=== PATIENT | female | born 1985 | race Hispanic/Latino ===

== ENCOUNTER 2023-12-10 11:16 | Outpatient (CLI) | payer SELFPAY ==
[2023-12-10 11:31] VITALS: BMI 30.2
[2023-12-10 11:46] VITALS: TEMP 36.3
[2023-12-10 13:10] VITALS: PULSE 99; O2SAT 98
[2023-12-10 15:20] LABS: Mucous, Urine 0 SEEN /hpf (<or=2+); Red Blood Cells-Urine 0 SEEN /hpf (0-5)
[2023-12-10 15:25] LABS: Absolute Lymphocyte Count 1.22 X10^3/uL (0.83-4.51); Absolute Neutrophil Count 4.2 X10^3/uL (2.0-7.7); Basophil# 0.01 X10^3/uL; Basophil% 0.2 % (0-1); Eosinophil# 0.06 X10^3/uL; Hematocrit 31.2 % (37-47); Hemoglobin 10.1 g/dL (12.0-15.0); Lymphocyte # 1.22 X10^3/ul (0.83-4.51); Lymphocyte % 20.5 % (19-41); Mean Corp Hgb Conc 32.4 g/dL (32-36); Mean Corpuscular Hgb 27.4 pg (27.0-32.0); Mean Corpuscular Volume 84.8 fL (81-99); Mean Platelet Vol. 11.2 fl (6.2-12.0); Monocyte# 0.39 X10^3/uL; Monocyte% 6.6 % (0-10); NRBC Flagged by Analyzer 0 % (0-5); Neutrophil # 4.23 X10^3/uL (2.7-7.7); Neutrophil % 71.2 % (47-70); Platelet Count 265 K/mm3 (150-450); RBC Distribution Width CV 13.2 % (11.6-14.6); RBC Distribution Width SD 40.7 fl (35.1-43.9); Red Blood Count 3.68 M/mm3 (4.2-5.4); White Blood Count 5.9 K/mm3 (4.4-11.0)
[2023-12-10 15:37] LABS: Color, Urine Yellow (Yellow); Glucose, Dipstick Normal (Normal); Ketone-Dipstick Negative (Negative); Leukocyte Esterase-Dipstick Negative /ul (Negative); Nitrite-Dipstick Positive (Negative); Occult Blood-Urine Negative /ul (Negative); Protein-Dipstick 15 mg/dl (Negative); Specific Gravity, Urine 1.015 (1.002-1.030); Urine Bilirubin Dipstick Negative (Negative); Urine Clarity Sl. Cloudy (Clear); Urine Urobilinogen Normal (Normal); Urine pH 6.5 (5.0 - 8.0)
[2023-12-10 15:51] LABS: Amphetamine Urine VISTA NEGATIVE (<1000 ng/mL); Barbiturate Urine VISTA NEGATIVE (< 200 ng/mL); Benzodiazepine Urine VISTA NEGATIVE (< 200 ng/mL); Cocaine Urine VISTA NEGATIVE (< 300 ng/mL); Ecstacy Urine VISTA NEGATIVE (< 500 ng/mL); Methadone Urine VISTA NEGATIVE (< 300 ng/mL); PCP Urine VISTA NEGATIVE (< 25 ng/mL); THC Urine VISTA NEGATIVE (< 50 ng/mL); Vista UDS pH Range 6
[2023-12-10 16:04] LABS: Bacteria 1+ /hpf (None Seen); Squamous Epithelial Cells - UA 0-5 SEEN /hpf (5-10); White Blood Cells 0-5 SEEN /hpf (0-5)
--- NOTE | 2023-12-10 16:17 | CASEMGMT ---
Labor and Delivery Unit Social Work Sw met with mother of baby (MOB- Brittani) at bedside. Brittani presented to unit today due to abdominal pain. Patient is 24 weeks and just moved to [place], [place] from [place] on Wednesday/ Wednesday. Patient states that she has been in the [place], following the passing of her who [place] Patient states that she is here with her three children (19 y/o, 13 y/o and 6y/o). Patient states that her 19 year old has his own family, including a baby. Patient states that she was working on getting her two younger children enrolled in school, there was a meeting today, but it got missed due to her pain which brought her to the hospital. Patient states that she does not have any insurance. Patient reports that she was establishing insurance in [place], however was informed that that insurance would not assist with services in [place]. Sw informed patient that if patient is receptive to support/ resources, sw will get her connected to [facility] (to help with linkage to insurance for her and her children) and [facility] (which will help her obtain all necessary baby supplies). Patient stated that she is open to that and expressed appreciation. Patient does not have transportation, her friend who she is residing with is helping her with transportation. However, she is not able to pick her up from hospital as she is currently working. Bedside RN assisted with transportation with [facility] benjamin. Sw informed MOB of scheduled OBGYN appointments with [facility] (12/14 and 12/31). Sw wrote appointments down, and using director of resource developmentCristhian (ID #[id number]) ensured that patient was aware of place, date and time for appointments. Sw informed patient that sw will meet with her when she is present for labor and delivery. Patient expressed understanding. Sw continue to assess on an ongoing basis as able and make necessary community referrals when warranted. Gayla Flores, MECHANIC MARINE ENGINE, ASSISTANT PROFESSOR OF BIOLOGY
[2023-12-10 18:03] LABS: Rubella IgG Reactive (Nonreactive); Syphilis Antibodies Non-reactive
[2023-12-10 18:21] LABS: HIV - WCH Non-Reactive (Nonreactive); Hepatitis B Surface Antigen Non-Reactive (Nonreactive); Hepatitis C Antibody Non-Reactive (Nonreactive)
--- NOTE | 2023-12-12 11:06 | OB.TRI.NOTE ---
HPI - General HPI Narrative TAVO MAC, is a 38 F who presents Maternal Data Information Final SHELL: 12/10/23 Gestational age: 24 2/7 PFSH PFSH Allergy/AdvReac Type Severity Reaction Status Date / Time No Known Allergies Allergy Verified 12/10/23 14:36 NST FHR Rate Baby A Baseline: 140 Variability:: Moderate Accelerations:: 10 x 10 Decelerations:: Variable NST Reactive:: Appropriate for gestational age FHR Category:: Category I (for > 20 min before d/c) Assessment & Plan (1) High risk multigravida in third trimester: PLAN: High risk multigravida at 24 weeks. History of previous sections. Advanced maternal age. [place], has not established for care that we can determine. panel ordered. Patient complain nonspecific abdominal pain. Patient was stable diagnosed with musculoskeletal abdominal pain. She is to follow-up in my office on 12/14/2023, appointment is arranged. Patient is understanding and agreement with plan.
== END 2023-12-10 16:00 | disposition home or self-care (01) ==
LOC: WPOUT 11:19 → WP 11:20
PROVIDERS: Referring Provider Obstetrics & Gynecology; Visit Provider Obstetrics & Gynecology
DX: O09.522 Supervision of elderly multigravida, second trimester (principal); O09.32 Supervision of pregnancy with insufficient antenatal care, second trimester; O36.8320 Maternal care for abnormalities of the fetal heart rate or rhythm, second trimester, not applicable or unspecified; O34.219 Maternal care for unspecified type scar from previous cesarean delivery; O99.891 Other specified diseases and conditions complicating pregnancy; R10.9 Unspecified abdominal pain; Z3A.24 24 weeks gestation of pregnancy
CPT/HCPCS: 59050; 80307; 81001; 85025; 86703; 86762; 86780; 86803; 86850; 86900; 86901; 87340

== ENCOUNTER 2024-01-12 07:55 | Outpatient (CLI) | payer SELFPAY ==
[2023-12-10 11:46] VITALS: RESP 16
[2024-01-12 08:09] VITALS: BP 108/65; PULSE 105
[2024-01-12 08:11] VITALS: BMI 29.0
--- NOTE | 2024-01-12 08:17 | OB.TRI.NOTE ---
HPI - General HPI Narrative TAVO MAC, is a 38 F L3 at 30.1 weeks gestation who presents from triage for emesis. Maternal Data Information SHELL Calculator Estimated Delivery Date Method Current WG Current Estimate 03/21/24 Manual 30w 1d PFSH PFSH Home Medications acetaminophen 500 mg capsule 1,000 mg PO Q6H PRN pain 01/12/24 [History Last Taken Unknown] magnesium oxide 420 mg tablet 420 mg PO DAILY 01/12/24 [History Last Taken Unknown] sertraline 25 mg tablet (Zoloft) 25 mg PO DAILY 01/12/24 [History Last Taken Unknown] Allergy/AdvReac Type Severity Reaction Status Date / Time No Known Allergies Allergy Verified 12/10/23 14:36 NST FHR Rate Baby A Baseline: 140 Variability:: Moderate Accelerations:: 10 x 10 Decelerations:: None NST Reactive:: Yes Uterine Activity:: None via TOCO or palpation Assessment & Plan (1) High risk multigravida in third trimester: (2) Late care affecting : (3) Language barrier: (4) Depression affecting : (5) Previous delivery, antepartum: (6) Vomiting affecting : (7) 30 weeks gestation of : (8) History of delivery: PLAN: Plan Extended monitoring Start IV and give 500 cc bolus of LR Zofran 4 mg IV x 1 now Patient stated feeling better Desires discharge home Follow up in office
[2024-01-12 08:20] LABS: Mucous, Urine 0 SEEN /hpf (<or=2+); Red Blood Cells-Urine 0 SEEN /hpf (0-5); White Blood Cells 0 SEEN /hpf (0-5)
[2024-01-12 08:26] LABS: Color, Urine Yellow (Yellow); Glucose, Dipstick Normal (Normal); Ketone-Dipstick Negative (Negative); Leukocyte Esterase-Dipstick Negative /ul (Negative); Nitrite-Dipstick Negative (Negative); Occult Blood-Urine Negative /ul (Negative); Protein-Dipstick 30 mg/dl (Negative); Urine Bilirubin Dipstick Negative (Negative); Urine Clarity Sl. Cloudy (Clear); Urine Urobilinogen Normal (Normal); Urine pH 6.5 (5.0 - 8.0)
[2024-01-12] MEDS: LACTATED RINGERS 500 ML 999 ML IV (08:30)
[2024-01-12 08:33] LABS: Bacteria 1+ /hpf (None Seen); Squamous Epithelial Cells - UA 5-10 SEEN /hpf (5-10)
[2024-01-12] MEDS: Ondansetron 4 MG/2 ML Vial IV (08:33)
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
--- OUTSIDE RECORDS SUMMARY | 2024-01-12 08:35 | XMS RPT_ITS | CCD ---
Author Name Unknown Address [address] [place] [id number] Organization [facility] Care Team Providers Care Cab Station Attendant Name Role Phone Unavailable Primary Care Provider [...] 69.85 kg Etelvina Bowden MD Work Phone: [facility] 12-14-2023 15:11-0500 Diastolic blood pressure 60 mm[Hg] Etelvina Bowden MD Work Phone: [facility] 12-14-2023 15:11-0500 Systolic blood pressure 110 mm[Hg] Etelvina Bowden MD Work Phone: [facility] Encounters Encounter Date Encounter Type Care [...] DTaP,Tdap,Td Vaccine (2 - Td or Tdap) [facility] Start: 01-05-2024 End: 04-05-2024 CBC panel - Blood by Automated count CBC Lab Routine 28 weeks gestation of Antepartum multigravida of advanced maternal age Expected: 01/05/2024, Expires: 04/05/2024 [facility] Work Phone: Immunizations Immunization Date Immunization Notes Care Provider Fa cility 12-31-2023 tetanus toxoid, redu zaida diphtheria toxoid, and acellular pertussis vaccine, adsorbed Ob Ultrasound Work Phone: [facility] Social History Date Type Detail Facility Tobacco smoking status IAIS Tobacco smoking consumption unknown [facility] Work Phone: Start: 1985 Sex Assigned At Not on file [facility] Start: 12-14-2023 End: 12-17-2023 Gender identity Not on file [facility] Start: 12-14-2023 Tobacco smoking status [facility] Never smoked tobacco [facility] Start: 12-14-2023 Tobacco use and exposure Smokeless tobacco non-user [facility] Start: 12-17-2023 End: 12-31-2023 Alcohol intake Ex-drinker (finding) [facility] Start: 12-14-2023 End: 12-17-2023 History of Social function [facility] The thought of harming myself has occurred to me Sometimes [facility] National Score (1-100), lower number is lower risk 80 [facility] Start: 06-29-2023 [facility] Note 01-04-2024 Telephone Encounter - Linda [...] Jazmín Ham CMA documented in this encounter [facility] Note 12-17-2023 Telephone Encounter - Soco Hollis RN - 12/17/2023 5:08 PM ESTTelephone Encounter - Etelvina Bowden MD - 12/17/2023 4:49 PM ESTTelephone Encounter - Soco Hollis RN - 12/17/2023 3:28 PM EST Note Date & Type Note Facility 12-17-2023 Miscellaneous Notes Formattin g of this note might be different from the original. Patient notified via interpreter translator services. Soco Hollis RN Done Etelvina Bowden MD Please place/file orders and will notify patient. Soco Hollis RN ----- Message from Etelvina Bowden MD sent at 12/17/2023 2:36 PM EST ----- Needs treated for UTI Etelvina Bowden MD documented in this encounter [facility] Progress note 12-14-2023 Note Date & Type Note Facility 02-06-2024 Note HNO ID: [id number] Author: ETELVINA BOWDEN MD Service: ? Author [...] use: No Multivitamin with Folic acid: Yes Zoroastrianism or heritage: No Would refuse blood transfusion [...] all that apply)? Centering (group care classes), [place] Guide, and Metal Tube Cutter care Social History: Do you have any [...] harming myself has occurred to me. Sometimes Fowler Depression Scale Total 19 Feeling nervous, anxious [...] [facility] (more content not included)... [facility]23 Patient Instructions Note Date & Type Note Facility 12-14-2023 Instructions Dulce Dior Ma - 12/14/2023 2:59 PM EST Please select the following link to access the [facility] Your Guide to a Healthy . [email or web address] documented in this encounter [facility] History of Present illness Narrative 12-14-2023 [...] use: No Multivitamin with Folic acid: Yes Zoroastrianism or heritage: No Would refuse blood transfusion [...] all that apply)? Centering (group care classes), [place] Guide, and Metal Tube Cutter care Social History: Do you have any [...] harming myself has occurred to me. Sometimes Fowler Depression Scale Total 19 Feeling nervous, anxious [...] Status:Single Partner: Name: Partner was killed in [place] No past medical history on file. No [...] Etelvina Bowden MD documented in this encounter [facility] Note 12-10-2023 Telephone Encounter - Elif [...] history and get her started? Will need spanish medical interpreter. Judith Hughes MD documented in this encounter [facility] Evaluation note Note Date & Type Note Facility documented in this encounter [facility] Evaluation note Note Date & Type Note Facility documented in this encounter [facility] Evaluation note Note Date & Type Note Facility documented in this encounter [facility] Reason for referral (narrative) Diagnostic Procedure Only (Routine) - Pending Review Note Date & Type Note Facility Referral ID Status Reason Start Date Expiration Date Visits Requested Visits Authorized [id number] Pending Review Auto-Generat ed Referral 12/14/2023 12/13/2024 1 1 [facility] Summary Purpose Family History No Family [...] or prosecute any alcohol or drug abuse patient.[facility] the event this information is protected by the Federal Confidentiality of Alcohol and Drug Abuse Patient Records regulations: The Federal rules restrict any use of the information to criminally investigate or prosecute any alcohol or drug abuse patient.[facility] the event this information is protected by the Federal Confidentiality of Alcohol and Drug Abuse Patient Records regulations: The Federal rules restrict any use of the information to criminally investigate or prosecute any alcohol or drug abuse patient.[facility] the event this information is protected by the Federal Confidentiality of Alcohol and Drug Abuse Patient Records regulations: The Federal rules restrict any use of the information to criminally investigate or prosecute any alcohol or drug abuse patient.[facility] the event this information is protected by the Federal Confidentiality of Alcohol and Drug Abuse Patient Records regulations: The Federal rules restrict any use of the information to criminally investigate or prosecute any alcohol or drug abuse patient.[facility] Reason for Visit (unrecogniz ed section and content) Reason Comments Initial OB Visit Specialty Diagnoses / Procedures Referred By Contac t Referred To Contact [facility] Diagnoses 6 months - needs OB appt Procedures OFFICE CONSULTATION NEW/ESTAB PATIENT 15 MIN Self [facility] [address] [place] [address] Referral ID Status Reason Start Date Expiration Date Visits Requested Visits Authorized [id number] Authorized Financial Clearance Required - Self Pay [...] BE BASED ON THE PRIMARY CLINICAL RECORDS. [facility] [employer] [facility]. provides no warranty or guarantee of the accuracy or completeness of information in this document.
== END 2024-01-12 09:15 | disposition home or self-care (01) ==
LOC: WPOUT 08:03 → WP 08:04
PROVIDERS: Referring Provider Advanced Practice Midwife; Visit Provider Advanced Practice Midwife
DX: O21.2 Late vomiting of pregnancy (principal); O34.219 Maternal care for unspecified type scar from previous cesarean delivery; O09.523 Supervision of elderly multigravida, third trimester; O99.343 Other mental disorders complicating pregnancy, third trimester; F32.A Depression, unspecified; Z3A.30 30 weeks gestation of pregnancy; Z87.59 Personal history of other complications of pregnancy, childbirth and the puerperium
CPT/HCPCS: 96374; 96361; 59025; 59050; 81001; 99221; J7120; G0378; J2405

== ENCOUNTER 2024-03-14 10:05 | Inpatient (IN) | payer SELFPAY ==
[2024-03-14] VITALS (17 sets, daily range): BP systolic 89–113; BP diastolic 32–76; PULSE 75–93; RESP 16; TEMP 36.2–36.9; O2SAT 99–100; BMI 33.0
[2024-03-14] MEDS: Lactated Ringers 1,000 ML 999 ML IV (10:05)
[2024-03-14 10:21] LABS: Absolute Lymphocyte Count 0.93 X10^3/uL (0.83-4.51); Absolute Neutrophil Count 3.8 X10^3/uL (2.0-7.7); Basophil# 0.02 X10^3/uL; Basophil% 0.4 % (0-1); Eosinophil# 0.04 X10^3/uL; Eosinophils% 0.8 % (0-5); Hematocrit 37.1 % (37-47); Lymphocyte # 0.93 X10^3/ul (0.83-4.51); Lymphocyte % 18.1 % (19-41); Mean Corp Hgb Conc 32.3 g/dL (32-36); Mean Corpuscular Hgb 27.8 pg (27.0-32.0); Mean Corpuscular Volume 86.1 fL (81-99); Mean Platelet Vol. 11.8 fl (6.2-12.0); Monocyte# 0.31 X10^3/uL; NRBC Flagged by Analyzer 0 % (0-5); Neutrophil # 3.82 X10^3/uL (2.7-7.7); Neutrophil % 74.3 % (47-70); POSITIVE MORPHOLOGY YES; Platelet Count 236 K/mm3 (150-450); RBC Distribution Width CV 20.7 % (11.6-14.6); Red Blood Count 4.31 M/mm3 (4.2-5.4); White Blood Count 5.1 K/mm3 (4.4-11.0)
[2024-03-14 10:22] LABS: Differential Indicated SCAN CRITERIA MET
[2024-03-14] MEDS: Acetaminophen 500 MG Tablet 1000 MG PO ×3 (10:22→22:02)
[2024-03-14 10:48] LABS: Anisocytosis 1+
[2024-03-14 10:52] LABS: Syphilis Antibodies Non-reactive
[2024-03-14] MEDS: Lactated Ringers 1,000 ML 150 ML IV (11:10)
[2024-03-14] MEDS: Sodium Citrate/Citric Acid 30 ML UDC PO (11:34)
--- NOTE | 2024-03-14 12:20 | PCM.HP.OB ---
HPI - General General Date of Admission: 03/14/24 Date of Service: 03/14/24 HPI Narrative TAVO MAC, is a 38 F who presents for repeat . Maternal Data Information SHELL Calculator Estimated Delivery Date Method Current WG Current Estimate 03/21/24 Manual 39w 0d PFSH PFSH Medical History Depression History of pre-term labor Home Medications acetaminophen 500 mg capsule 1,000 mg PO Q6H PRN pain 01/12/24 [History Last Taken Unknown] magnesium oxide 420 mg tablet 420 mg PO DAILY cramps 01/12/24 [History Last Taken Unknown] sertraline 25 mg tablet (Zoloft) 25 mg PO DAILY depression 01/12/24 [History Last Taken Unknown] Allergy/AdvReac Type Severity Reaction Status Date / Time No Known Allergies Allergy Verified 03/14/24 10:03 Surgical History Previous section Social History Smoking Status: Never smoker History Elective abortions Hx Para 3 Spontaneous abortions Hx # Term Pregnancies Ectopic pregnancies Hx # Pregnancies Multiple births # of living children Vital Signs Vital Signs Vital Signs: 03/14/24 10:03 03/14/24 10:03 03/14/24 11:50 Temperature 97.8 F Temperature Source Temporal Pulse Rate 82 86 Respiratory Rate 16 Blood Pressure 113/74 113/74 Blood Pressure Mean 87 BP Systolic 113 BP Diastolic 74 Blood Pressure Source Monitor Blood Pressure Position Semi-Fowlers Blood Pressure Location Left Arm Pulse Ox 99 Oxygen Delivery Method Room Air Weight Weight: 169 lb Body Mass Index (BMI) 33.0 Physical Exam Const alert, oriented x3 and no apparent distress GI soft to palpation, non-tender and non-distended Inspection: gravid external exam normal Labs Labs Labs: Blood Type O POSITIVE Antibody Screen NEGATIVE Hct 37.1 % (37-47) Hgb 12.0 g/dL (12.0-15.0) Syphilis Total Ab Non-reactive Rubella IgG Antibody Reactive (Nonreactive) Hep Bs Antigen Non-Reactive (Nonreactive) Hepatitis C Antibody Non-Reactive (Nonreactive) HIV 1&2 Antibody Non-Reactive (Nonreactive) Assessment & Plan (1) Previous delivery, antepartum: (2) Request for sterilization: (3) Anemia affecting : QUALIFIERS: Trimester: unspecified trimester Qualified Code(s): O99.019 - Anemia complicating , unspecified trimester PLAN: Plan Admit to L&D Proceed with repeat with bilateral salpingectomy Routine care
[2024-03-14] MEDS: Cefazolin 2 GM in 0.9% Normal Saline (100mL Bag) 100 ML IV (12:52)
--- NOTE | 2024-03-14 13:38 | EX.PCM.OBRPT ---
Maternal Data Information SHELL Calculator Estimated Delivery Date Method Current Current Estimate 03/21/24 Manual 39w 0d Details Operative Information Pre-Operative Diagnosis: (1) Prior section (2) Sterilization request Post-Operative Diagnosis: Same Indications for : Repeat Elective and Desires elective sterilization Indications Narrative: The patient was taken to the operating room where spinal anesthesia was placed & found to be adequate. She was prepped and draped in the dorsal supine position with a leftward tilt. A Pfannenstiel skin incision was made approximately 2 cm above the symphysis pubis and carried through to the underlying fascia with the scalpel. The fascia was incised incised in the midline and extended laterally with the Bishop scissors. The rectus muscles were in the midline. Significant scar tissue of the peritoneum to the uterus was noted. The peritoneum was carefully dissected off the uterus. Then the peritoneum was entered carefully and bluntly. The peritoneal incision was stretched and the bladder blade was inserted. Vesicouterine peritoneum was tented up, incised & then bladder flap created gently. The uterine incision was made in a low transverse fashion with the scalpel and extended superiorly and inferiorly with blunt dissection. The infant's head was brought to the incision in the flexed position and delivered without difficulty. The head was gently guided to allow delivery of the anterior and posterior shoulders. The body then delivered with fundal pressure in the standard fashion. The 3VC cord was clamped and cut in delayed fashion. The infant was handed off to the waiting vice president network development. The placenta was delivered with fundal massage and gentle traction in the standard fashion. The uterus was unable to be exteriorized due to the significant amount of scar tissue. The uterus was cleared of clots and debris. The uterine incision was closed with #1 Vicryl suture in a running locked fashion. Monocryl suture was used in an imbricating fashion. The incision was examined and was found to be hemostatic. The fallopian tubes and ovaries were unable to be visualized or even palpated due to the scar tissue. Thus tubal sterilization was unable to be performed. After irrigating Dc was placed over the uterine incision & bladder flap as some areas were denuded (but hemostatic). The rectus muscle was examined and any bleeding was Bovie cauterized. The fascia was closed with PDS suture in a running standard fashion. The subcutaneous tissue was examining and any bleeding was Bovie cauterized. The subcutaneous tissue was reapproximated with interrupted sutures. The skin was closed in a subcuticular fashion by the ROLL CUTTER while I was present in the labor & delivery unit. The remainder of the procedure was performed by me with assistance. All sponge, lap, and needle counts were correct. The patient was taken to her room for recovery in a stable condition. Classification: Scheduled Procedure Type: low transverse carrot harvester #1: Vipul Hernández Type of Anesthesia: Spinal Antibiotic Given: Ancef 2 grams IV x1 Drain: Rey to straight drain Estimated Blood Loss: 700ml Fluids Replaced: 1000ml Procedure Start Time: 12:55 Procedure Stop Time: 13:41 Findings Description of Procedure: Normal maternal uterus Significant scar tissue of peritoneum to uterus Adnexa not visualized Presentation: Positive for Vertex Amniotic Membrane Rupture Type: Artificial Amniotic Fluid Description: Clear Placental Delivery Description: Expressed Placenta Disposition: [facility] Specimen(s) Sent to Pathology: none Cord Vessel Description: 3 Vessels Cord Entanglement: None A Gender: Female (1 minute): 8 (5 minute): 9 Delayed Cord Clamping: Yes Complications Complications: none
[2024-03-14] MEDS: Oxytocin 15 Units/NS 250ml 15 UNITS/250 ML IV.SOLN 83 UNITS IV (14:00)
[2024-03-14] MEDS: Ketorolac 30 MG/ML Syringe IV ×2 (14:58→22:02)
[2024-03-14] MEDS: Lactated Ringers 1,000 ML 100 ML IV (16:59)
[2024-03-15 00:43] VITALS: BP 95/63; PULSE 82; RESP 16; TEMP 36.9; O2SAT 99
[2024-03-15] MEDS: Enoxaparin 40 MG/0.4 ML Syringe SC (04:04)
[2024-03-15] MEDS: Acetaminophen 500 MG Tablet 1000 MG PO ×3 (04:04→19:11)
[2024-03-15] MEDS: Ketorolac 30 MG/ML Syringe IV (04:04)
[2024-03-15 04:08] VITALS: BP 116/66; PULSE 70; RESP 16; TEMP 36.7; O2SAT 98
[2024-03-15 04:34] LABS: Hematocrit 28.3 % (37-47); Mean Corp Hgb Conc 31.8 g/dL (32-36); Mean Corpuscular Hgb 28.3 pg (27.0-32.0); Mean Platelet Vol. 12.3 fl (6.2-12.0); POSITIVE MORPHOLOGY YES; Platelet Count 188 K/mm3 (150-450); RBC Distribution Width CV 20.8 % (11.6-14.6); RBC Distribution Width SD 66.3 fl (35.1-43.9); Red Blood Count 3.18 M/mm3 (4.2-5.4); White Blood Count 5.1 K/mm3 (4.4-11.0)
[2024-03-15 05:17] LABS: Differential Comment SCANNED; Scan Indicated on CBC? Y/N YES- FLAGS NOTED
[2024-03-15 08:15] VITALS: BP 107/57; PULSE 81; RESP 17; TEMP 36.7; O2SAT 98
[2024-03-15 12:35] VITALS: BP 100/69; PULSE 89; RESP 16; TEMP 36.8; O2SAT 98
--- NOTE | 2024-03-15 12:35 | PCM.PN.OB ---
Subjective Subjective pain well controlled, average lochia. Denies N/V/lightheadedness. Has been up to bathroom Objective Data Objective Data Vital Signs: Vital Signs Temp Pulse Resp BP Pulse Ox O2 Del Method 98.0 F 81 17 107/57 L 98 Room Air 03/15/24 08:15 03/15/24 08:15 03/15/24 08:15 03/15/24 08:15 03/15/24 08:15 03/15/24 08:15 Oxygen Delivery Method Room Air Weight: 76.657 kg Body Mass Index (BMI) 33.0 Intake & Output: Intake and Output for Last 24 Hours 03/13/24 03/14/24 03/15/24 23:59 23:59 23:59 Intake Total 1860 / 1860 941 / 941 Output Total 1600 / 1600 900 / 900 Balance 260 / 260 41 / 41 Lab / Micro Data 03/15/24 04:22 Labs: Laboratory Results - last 24 hr 03/15/24 04:22: WBC 5.1, RBC 3.18 L, Hgb 9.0 L, Hct 28.3 L, MCV 89.0, MCH 28.3, MCHC 31.8 L, RDW Std Deviation 66.3 H, RDW Coeff of Cyrus 20.8 H, Plt Count 188, MPV 12.3 H, Differential Comment SCANNED Physical Exam Const alert General Appearance: cooperative GI GI Narrative: soft, moderate distention, fundus firm, appropriately tender. Abdominal bandage clean dry and intact Assessment & Plan (1) delivery delivered: PLAN: POD#1 doing well routine care and doing well d/w her findings at c/s and reviewed tubal is not best option for contraception, unable to be completed yesterday due to adhesions. Sophie would be complicated to do later laparoscopic tubal. D/w her options. would like Mirena IUD after discussion, but will consider and if has further questions discuss tomorrow Reclamation Supervisor line used for visit
[2024-03-15] MEDS: Senna/Docusate Sodium 1 Tablet PO (13:03)
[2024-03-15] MEDS: Sertraline 50 MG Tablet 25 MG PO (13:03)
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
[2024-03-15] MEDS: Ibuprofen 600 MG Tablet PO ×2 (15:03→21:09)
[2024-03-15 20:15] VITALS: BP 91/79; PULSE 86; RESP 16; TEMP 36.7; O2SAT 99
[2024-03-16] MEDS: Acetaminophen 500 MG Tablet 1000 MG PO ×4 (01:02→20:58)
[2024-03-16] MEDS: Enoxaparin 40 MG/0.4 ML Syringe SC (01:03)
[2024-03-16 01:15] VITALS: BP 114/76; PULSE 98; RESP 16; TEMP 36.4; O2SAT 100
[2024-03-16] MEDS: Ibuprofen 600 MG Tablet PO ×3 (03:18→18:40)
[2024-03-16 07:18] VITALS: BP 100/67; PULSE 82; RESP 16; TEMP 36.8; O2SAT 95
--- NOTE | 2024-03-16 08:46 | PCM.PN.OB ---
Subjective Subjective A rubber production machine operator was used. The patient is doing well. Pain is well-controlled. She is ambulating and voiding without difficulty. She is tolerating regular diet without nausea or vomiting. She is breast-feeding without complaints. Lochia is normal. She offers no complaints this morning. Objective Data Objective Data Vital Signs: Vital Signs Temp Pulse Resp BP Pulse Ox O2 Del Method 98.3 F 82 16 100/67 95 Room Air 03/16/24 07:18 03/16/24 07:18 03/16/24 07:18 03/16/24 07:18 03/16/24 07:18 03/16/24 07:18 Oxygen Delivery Method Room Air Weight: 169 lb Body Mass Index (BMI) 33.0 Intake & Output: Intake and Output for Last 24 Hours 03/14/24 03/15/24 03/16/24 23:59 23:59 23:59 Intake Total 1860 / 1860 941 / 941 Output Total 1600 / 1600 900 / 900 Balance 260 / 260 41 / 41 Lab / Micro Data 03/15/24 04:22 Physical Exam Const alert and no apparent distress Constitutional Narrative: currently nursing General Appearance: comfortable Assessment & Plan (1) delivery delivered: PLAN: The patient is postop day 2 from a repeat section. She is doing well meeting milestones for discharge. Discharge instructions reviewed with a rubber production machine operator. To return to the office for 1 week incision check. (2) Anemia affecting : QUALIFIERS: Trimester: unspecified trimester Qualified Code(s): O99.019 - Anemia complicating , unspecified trimester PLAN: She is asymptomatic from the anemia.
--- NOTE | 2024-03-16 08:50 | DCINST_ITS ---
Discharge Instructions Diet Discharge Diet: No restrictions Activity Discharge Activity: May Drive (once you are not taking pain medication and feel you can slam on a car brake or turn a steering wheel sharply) and May Shower May resume sexual activity in: 6 weeks Ice area for (Minutes): 15 Weight Bearing Status: Weight bearing as tolerated Lifting Restrictions: nothing heavier than baby Dressing / Incision Call your doctor if your incision/area has: Continuous Slow Oozing, Sudden Increased Bleeding, Increased Pain/ Swelling, Increased Redness, Foul Smelling Discharge and Swelling at the incision site Call your doctor if you observe: Fever of 101 or Higher, Coldness, Increased Pain, Numbness or Tingling, Change in Color, Inability to urinate, Inability to have a bowel movement, Using more than 1 pad per hour, Shortness of breath, Dizziness, Fainting spells, Swelling in the ankles, Chest pain, Prolonged hiccupping, Increased palpitations (irregular heartbeat), Calf discomfort and Uncontrolled pain Suture Line Care: Avoid Pulling/Pushing and Avoid Pinching/Bending Remove Dressing in: 2 days Cleanse incision/area with: Soap & Water Follow Up Care Please Follow Up With: Maikel Andrea MD When: 1-2 weeks for incision check 6 weeks for visit Test Results: Test results from this visit will be discussed in further detail at your follow- up appointment, if applicable. Discharge Plan Admission Admit Date/Time: 03/14/24 10:05 Primary Reason for Your Visit: delivery Attending Provider: Maikel Andrea Primary Care Provider: Neeta Stewart Primary Instructions Patient Instructions: After a Discharge Orders/Prescriptions Prescriptions: New oxycodone-acetaminophen [Percocet] 5-325 mg tablet 1 tab PO Q6H PRN (Reason: pain) 7 Days Qty: 5 0RF ibuprofen 600 mg tablet 600 mg PO Q6H PRN (Reason: pain) Qty: 30 0RF docusate sodium [Colace] 100 mg capsule 100 mg PO BID Qty: 30 0RF Continued sertraline [Zoloft] 25 mg tablet 25 mg PO DAILY acetaminophen 500 mg capsule 1,000 mg PO Q6H PRN (Reason: pain) Discontinued magnesium oxide 420 mg tablet 420 mg PO DAILY Referrals / Follow Up: Care Physician,No Primary [Primary Care Provider] - Disposition Disposition (needs filled in before D/C Order can be placed): Home, Self Care
--- NOTE | 2024-03-16 09:55 | CASEMGMT ---
Labor and Delivery Engineering Technician Sw presented to bedside and met with mother of baby (MOBUmair Richmond). Sw informed MOB that [employer] client services representative will be here at 10:00 to do paperwork in order to provide MOB with car seat. Sw informed MOB that when she is discharged she needs to go to [facility] to quill picking machine operator a safe sleep space that they have for her before she goes home. MOB expressed understanding. Sw also informed MOB that Jdae, from [employer] will also be coming to meet with her in order to complete paperwork. MOB did not express any other needs or concerns at this time. MOB thanked mojgan for help throughout her hospitalization. No ongoing needs or concerns at this time. MOB and baby to be discharged today when medically ready. Gayla Flores, BLUEPRINTER, TREADLE CUT OFF SAW OPERATOR
[2024-03-16] MEDS: Sertraline 50 MG Tablet 25 MG PO (10:22)
[2024-03-16] MEDS: Senna/Docusate Sodium 1 Tablet PO (10:22)
[2024-03-16 11:00] VITALS: BP 108/77; PULSE 84; RESP 16; TEMP 36.4; O2SAT 98
[2024-03-16] MEDS: oxyCODONE 5 MG Tablet PO ×3 (12:12→23:40)
[2024-03-16 18:27] VITALS: BP 111/68; PULSE 78; RESP 16; TEMP 36.8; O2SAT 97
[2024-03-16 19:51] VITALS: BP 110/80; PULSE 83; RESP 16; TEMP 36.4; O2SAT 98
[2024-03-17] MEDS: Enoxaparin 40 MG/0.4 ML Syringe SC (01:46)
[2024-03-17] MEDS: Ibuprofen 600 MG Tablet PO ×2 (01:46→08:59)
[2024-03-17 02:00] VITALS: BP 94/61; PULSE 91; RESP 16; TEMP 36.2; O2SAT 99
[2024-03-17] MEDS: Acetaminophen 500 MG Tablet 1000 MG PO ×2 (03:58→11:56)
--- NOTE | 2024-03-17 08:39 | PCM.PN.OB ---
Subjective Subjective Stayed an additional night for resources. NO complaints. Breast feeding well. Pain controlled. Rx already at pharmacy. Objective Data Objective Data Vital Signs: Vital Signs Temp Pulse Resp BP Pulse Ox O2 Del Method 97.1 F L 91 16 94/61 99 Room Air 03/17/24 02:00 03/17/24 02:00 03/17/24 02:00 03/17/24 02:00 03/17/24 02:00 03/17/24 02:00 Oxygen Delivery Method Room Air Weight: 76.657 kg Body Mass Index (BMI) 33.0 Intake & Output: Intake and Output for Last 24 Hours 03/15/24 03/16/24 03/17/24 23:59 23:59 23:59 Intake Total 941 / 941 Output Total 900 / 900 Balance 41 / 41 Lab / Micro Data 03/15/24 04:22 Physical Exam Const alert General Appearance: cooperative GI GI Narrative: soft, moderate distention, fundus firm, appropriately tender. Abdominal bandage clean dry and intact Assessment & Plan (1) delivery delivered: PLAN: Discharge home f/u in office one week. (2) Language barrier:
[2024-03-17 08:47] VITALS: BP 104/78; PULSE 88; RESP 16; TEMP 36.2; O2SAT 99
[2024-03-17] MEDS: Senna/Docusate Sodium 1 Tablet PO (08:59)
[2024-03-17] MEDS: Sertraline 50 MG Tablet 25 MG PO (08:59)
--- NOTE | 2024-03-17 10:17 | CASEMGMT ---
Labor and Delivery Solar Power Installer Sw presented to bedside and met with mother of baby (MOBUmair Richmond). Using maintenance shop laborer ama on MOB's phone, sw continued conversation. Sw reminded MOB that when she is discharged today she needs to go to [facility] to fruit picker the safe sleep space that they have secured for her. MOB expressed understanding. MOB asked questions regarding certificate and putting father of baby's (MARQUIS Morrow) name on it. Sw explained to MOB that just by putting PORFIRIO's name on the certificate does not make him financially responsible for baby. Sw explained that PORFIRIO will need to complete paternity testing in order to confirm that he is the biological father of baby, due to parents not being . Sw stated that once PORFIRIO has been identified as the biological father of baby than MOB can apply for child support. MOB expressed understanding. Sw explained that the paperwork MOB completed today is not the actual certificate, sw informed MOB that she will have to go to the Health Department and obtain a copy of the certificate. Sw informed MOB that this is ready around the same time as when MOB obtained baby's social security card. MOB expressed understanding and asked how she gets food. Sw informed MOB that in order to obtain food benefits/ EBT, she has to go to [employer] and apply. Sw reminded MOB of the list of county resources she provided for MOB, and highlighted [facility], Health Dept. and [facility]. MOB expressed understanding. Application for Medicaid was completed yesterday by [employer] customer contact representative, Jade. MOB has a car seat, is able to fruit picker a safe sleep space once discharged, has asked appropriate questions regarding certificate and additional community resources that she and baby may be eligible for. Sw provided ongoing support, highlighted and provided ongoing information regarding community resources that MOB needs to follow up with. MOB and baby to be discharged on this date. Gayla Flores, LAMINATION OPERATOR, VULCANIZING MACHINE OPERATOR
--- NOTE | 2024-03-17 12:08 | NURSING ---
Discharge instructions reviewed with patient via spanish interpreter. Follow up appointments reviewed and telephone numbers provided. Patient verbalizes understanding of instructions and denies questions.
--- NOTE | 2024-03-24 08:12 | PCM.DC.SUM ---
Providers Date of Admission: 03/14/24 Date of Discharge: 03/17/24 Primary Care Physician: No Primary Care Phys Reason For Visit: REPEAT CSECTION Diagnosis Discharge Diagnosis (1) delivery delivered: Status: Acute Code(s): O82 - Encounter for delivery without indication Plan: The patient is postop day 2 from a repeat section. She is doing well meeting milestones for discharge. Discharge instructions reviewed with a healthcare administration internship. To return to the office for 1 week incision check. (2) Language barrier: Status: Acute Code(s): Z60.3 - Acculturation difficulty; Z75.8 - Other problems related to medical facilities and other health care Medications at Discharge Home Medications acetaminophen 500 mg capsule 1,000 mg PO Q6H PRN pain 01/12/24 sertraline 25 mg tablet (Zoloft) 25 mg PO DAILY depression 01/12/24 docusate sodium 100 mg capsule (Colace) 100 mg PO BID constipation #30 caps 03/16/24 ibuprofen 600 mg tablet 600 mg PO Q6H PRN pain #30 tabs 03/16/24 oxycodone-acetaminophen 5 mg-325 mg tablet (Percocet) 1 tab PO Q6H PRN pain 7 days #5 tabs 03/16/24 Hospital Course Operations section Summary of Care Provided Hospital Course: Pt presented for scheduled repeat section. See operative report for details. She was discharged home in good condition. She was ambulating and voiding, pain was controlled, and she was tolerating a regular diet. She was instructed to follow up in the office in 1 week for an incision check. Weight / BMI Weight Weight: 169 lb Body Mass Index (BMI) 33.0 ABG / Lab / Microbiology Data 03/15/24 04:22 D/C Instructions Discharge Diet: No restrictions May resume sexual activity in: 6 weeks Ice area for (Minutes): 15 Weight Bearing Status: Weight bearing as tolerated Call your doctor if your incision/area has: Continuous Slow Oozing, Sudden Increased Bleeding, Increased Pain/ Swelling, Increased Redness, Foul Smelling Discharge and Swelling at the incision site Call your doctor if you observe: Fever of 101 or Higher, Coldness, Increased Pain, Numbness or Tingling, Change in Color, Inability to urinate, Inability to have a bowel movement, Using more than 1 pad per hour, Shortness of breath, Dizziness, Fainting spells, Swelling in the ankles, Chest pain, Prolonged hiccupping, Increased palpitations (irregular heartbeat), Calf discomfort and Uncontrolled pain Suture Line Care: Avoid Pulling/Pushing and Avoid Pinching/Bending Cleanse incision/area with: Soap & Water Please Follow Up With: Maikel Andrea MD When: 1-2 weeks for incision check 6 weeks for visit Meaningful Use Info Meaningful Use Meaningful Use Diagnoses (Choose all that apply): None applicable Ischemic Stroke Statin Dosing Therapy Reference: STATIN DOSE THERAPY REFERENCE: * Patients > 75 years receive moderate or high dose statin therapy. * Patients 75 years or YOUNGER should receive HIGH intensity statin dose unless contraindicated. You will be required to document reason for non-treatment if statin daily dose does not meet guidelines. HIGH DOSE STATIN THERAPY DAILY Atorvastatin > than or = to 40 mg Rosuvastatin > than or = to 20 mg Amlodipine + Atorvastatin > than or = to 2.5/40 mg Ezetimibe + Simvastatin 10/80 mg Simvastatin 80mg Discharge Plan Admission Admit Date/Time: 03/14/24 10:05 Primary Reason for Your Visit: delivery Attending Provider: Maikel Andrea Primary Care Provider: Care Physician,Neeta Primary Instructions Patient Instructions: After a Discharge Orders/Prescriptions Prescriptions: New oxycodone-acetaminophen [Percocet] 5-325 mg tablet 1 tab PO Q6H PRN (Reason: pain) 7 Days Qty: 5 0RF ibuprofen 600 mg tablet 600 mg PO Q6H PRN (Reason: pain) Qty: 30 0RF docusate sodium [Colace] 100 mg capsule 100 mg PO BID Qty: 30 0RF Continued sertraline [Zoloft] 25 mg tablet 25 mg PO DAILY acetaminophen 500 mg capsule 1,000 mg PO Q6H PRN (Reason: pain) Discontinued magnesium oxide 420 mg tablet 420 mg PO DAILY Referrals / Follow Up: Care Physician,No Primary [Primary Care Provider] - Disposition Disposition (needs filled in before D/C Order can be placed): Home, Self Care
== END 2024-03-17 12:05 | disposition home or self-care (01) | DRG 788 ==
PROVIDERS: Admitting Provider Obstetrics & Gynecology; Referring Provider Obstetrics & Gynecology; Visit Provider Obstetrics & Gynecology
PROC: 10D00Z1 Extraction of Products of Conception, Low, Open Approach (ICD-10-PCS; CPT 59514; principal; 2024-03-14 11:45)
DX: O34.219 Maternal care for unspecified type scar from previous cesarean delivery (principal); N73.6 Female pelvic peritoneal adhesions (postinfective); O99.892 Other specified diseases and conditions complicating childbirth; Z30.2 Encounter for sterilization; Z60.3 Acculturation difficulty; Z75.8 Other problems related to medical facilities and other health care; Z37.0 Single live birth; Z3A.39 39 weeks gestation of pregnancy; Z53.09 Procedure and treatment not carried out because of other contraindication
CPT/HCPCS: 59050; 85025; 85027; 86780; 86850; 86900; 86901; 99221; J7120; G0378; J2405

== ENCOUNTER 2025-01-22 05:41 | Emergency (ER) | payer MEDICAID, SELFPAY ==
[2025-01-22 05:42] VITALS: BP 109/81; PULSE 80; RESP 18; TEMP 36.6; O2SAT 98
[2025-01-22 05:45] VITALS: BP 108/85; PULSE 78; RESP 18; TEMP 36.6; O2SAT 99
--- NOTE | 2025-01-22 05:57 | CT_ITS ---
PROCEDURE: CT of the abdomen/pelvis with IV contrast. 01/22/2025 REASON FOR EXAM: ABDOMINAL PAIN TECHNIQUE: After the administration of 100 cc Isovue 300 IV contrast, contiguous axial CT images were obtained through the abdomen/pelvis. Sagittal and coronal reformats were created. One or more dose reduction techniques were used (e.g., Automated exposure control, adjustment of the mA and/or kV according to patient size, use of iterative reconstruction technique. RADIATION DOSE SUMMARY: DLP: 601.58 mGycm COMPARISON: None. FINDINGS: Mild degenerative changes in the spine. Bones of the abdomen/pelvis otherwise unremarkable. Heart is not enlarged. No sizable pericardial effusion. Lower ribs are intact. No focal abnormality of the included breast tissue. Probable dependent atelectasis lower lobes. Abdominal aorta normal in caliber. No large abdominal wall defect. No focal abnormality of the urinary bladder. Patchy wall thickening of the stomach may be due to lack of distention versus peristalsis. No calcified gallstones or abnormal dilation of the biliary tree. Portal vein is patent. The liver, adrenal glands, spleen, and pancreas show no specific abnormality. Kidneys are symmetric in size and enhancement. No solid renal mass or obstructive uropathy. A metallic T-shaped intrauterine device is present. No dominant adnexal mass. No abdominal/pelvic adenopathy or ascites. No drainable abdominal/pelvic fluid collection. No abnormally dilated bowel segments or free intraperitoneal air. Scattered patchy wall thickening of the colon may be due to lack of distention versus peristalsis. There is moderate fluid density throughout the colon, without significant colonic wall thickening or pericolonic inflammatory changes. Normal-appearing appendix. A 9 mm soft tissue nodule lateral left upper quadrant image 30 of the axial images, possible tiny splenule. There are some scattered fluid-filled nondilated small bowel segments. CT/Abdomen/Pelvis W IV Cont ONLY IMPRESSION: Scattered nondilated fluid-filled small and large bowel segments, which can be seen with viral gastroenteritis. No evidence of bowel obstruction or free intraperitoneal air. No obstructive uropathy or acute appendicitis. Reading Location: [facility]
--- NOTE | 2025-01-22 05:58 | ED.VIS.GI ---
HPI <Dr. Sheila Zazueta DO - Last Filed: 01/22/25 06:55> HPI - GI History of Present Illness Chief Complaint: Abd Pain Detail of Chief Complaint: Abdominal pain Informant: patient Narrative Narrative: Patient presents with abdominal pain that started 5 days ago. She describes frequent diarrhea about every 30 minutes to an hour. Denies blood in her stool or black tarry stool. Patient also with episodes of vomiting. Tells me she had a fever 2 days ago. Her daughter had recent similar illness. She denies recent antibiotic usage. Patient is Syriac-speaking and used the [employer] electrical controls engineer to obtain history. Patient has no significant prior surgical history other than a . She has no significant medical history otherwise. [facility] <Dr. Sheila Zazueta DO - Last Filed: 01/22/25 06:55> [facility] Medical History no medical history Home Medications ?Medication ?Instructions ?Recorded ?Last Taken ?Type ondansetron 4 mg disintegrating 4 mg PO Q8H PRN PRN Nausea #10 tabs 01/22/25 Unknown Rx tablet Allergy/AdvReac Type Severity Reaction Status Date / Time No Known Allergies Allergy Verified 01/22/25 05:41 Family History no significant family his Surgical History (Updated 01/22/25 @ 05:46 by Martita Lewis) Hx of section Social History Smoking Status: Never smoker ROS <Dr. Shelia Zazueta, DO - Last Filed: 01/22/25 06:55> ROS ED Review of Systems ROS Unobtainable: other Constitutional Constitutional ED: Reports lethargy; Denies chills, fever(s), sweats or weight loss Eyes Eyes: Denies blurry vision, change in vision or diplopia ENT ENT ED: Denies rhinorrhea or sore throat Cardiovascular Cardiovascular: Denies chest pain, orthopnea or racing heartbeat Respiratory/Chest Respiratory/Chest: Denies cough, dyspnea, dyspnea on exertion, orthopnea or sputum Gastrointestinal Gastrointestinal: Reports abdominal pain, diarrhea, nausea and vomiting Genitourinary Genitourinary ED: Denies dysuria, hematuria or urinary frequency Musculoskeletal Musculoskeletal: Denies arthralgias, back pain, myalgias or neck pain Integumentary Denies abscess, Abrasions or rash Neurologic Neurologic: Denies headache(s) or weakness Psychiatric Psychiatric: Denies anxiety, depression or suicidal thoughts Endocrine Endocrinology: Denies polydipsia, polyphagia or polyuria Hematologic/Lymphatic Hematologic/Lymphatic: Denies easy bleeding, easy bruising or lymphadenopathy Allergic/Immunologic Allergic/Immunologic ED: Denies mouth swelling, tongue swelling or urticaria EXAM <Dr. Sheila Zazueta, DO - Last Filed: 01/22/25 06:55> Physical Exam Const Vital Signs: 01/22/25 05:42 01/22/25 05:45 01/22/25 06:45 Temperature 97.9 F 97.9 F 98.5 F Temperature Source Oral Oral Oral Pulse Rate 80 78 70 Respiratory Rate 18 18 18 Blood Pressure 109/81 H 108/85 H 101/73 Blood Pressure Mean 90 92 82 Pulse Ox 98 99 97 Oxygen Delivery Method Room Air Room Air Room Air 01/22/25 07:38 01/22/25 08:11 Temperature 98.2 F Temperature Source Pulse Rate 71 72 Respiratory Rate 19 H 19 H Blood Pressure 113/89 H 104/84 H Blood Pressure Mean 97 90 Pulse Ox 98 98 Oxygen Delivery Method Room Air Positive well nourished and well developed General Appearance ED: well developed and NAD HEENT Reports TM's clear and moist mucous membranes normocephalic and atraumatic; Negative for trauma or tenderness Tympanic Membrane ED: Yes TM's clear Eyes PERRL and EOMs intact bilaterally General Eye ED: Negative for pale conjunctiva or scleral icterus Neck no lymphadenopathy, supple and no JVD General: Negative for tenderness Chest Wall inspection of chest normal and palpation of chest normal Chest: Negative for tenderness Resp normal respiratory effort and clear to auscultation bilaterally Effort and Inspection: Negative for respiratory distress or pain with movement Auscultation: Negative for rhonchi, wheezes or diminished lung sounds Cardio regular rate, regular rhythm, S1 normal heart sound, S2 normal heart sound and no murmurs Peripheral Pulses: pulses 2+ throughout GI normal to inspection, nondistended, normoactive bowel sounds, soft to palpation, non-distended and no masses GI Narrative: Mild diffuse tenderness but more specifically to the right side right upper quadrant and right lower quadrant. There is mild guarding. There is no rebound, rigidity, peritoneal signs. No masses palpated Back/Spine no CVA tenderness and no thoracic nor lumbar tenderness Extremity normal to inspection General Extremety ED: Negative for edema General Extremity: Negative for edema Neuro oriented x3, CN's II-XII intact bilaterally, no sensory deficits noted and gait normal Sensorium / Orientation: awake, alert, oriented to person, oriented to place and oriented to time Motor Exam: strength 5/5 throughout and strength abnormal Psych mental status grossly normal Skin no rashes or lesions noted and no wounds <Dr. Jose Gregg, DO - Last Filed: 01/22/25 08:14> Physical Exam Const Vital Signs: 01/22/25 05:42 01/22/25 05:45 01/22/25 06:45 Temperature 97.9 F 97.9 F 98.5 F Temperature Source Oral Oral Oral Pulse Rate 80 78 70 Respiratory Rate 18 18 18 Blood Pressure 109/81 H 108/85 H 101/73 Blood Pressure Mean 90 92 82 Pulse Ox 98 99 97 Oxygen Delivery Method Room Air Room Air Room Air 01/22/25 07:38 01/22/25 08:11 Temperature 98.2 F Temperature Source Pulse Rate 71 72 Respiratory Rate 19 H 19 H Blood Pressure 113/89 H 104/84 H Blood Pressure Mean 97 90 Pulse Ox 98 98 Oxygen Delivery Method Room Air MDM <Dr. Sheila Zazueta, DO - Last Filed: 01/22/25 06:55> [facility] MDM Narrative Medical decision making narrative: Patient presents with vomiting diarrhea and abdominal pain x 5 days. Sick contact of her daughter who had similar illness. Clinically looks well. Diffuse abdominal tenderness. Patient was medicated morphine and Zofran. She was given a liter Mustain fluid bolus. CBC with differential showed white count 4.6 with hemoglobin 13.9 and platelet count of 274. Chemistries unremarkable other than a slightly depressed potassium at 3.2. AST was 24 and ALT was 14. Alk phos was 140. Lipase elevated 152. Serum hCG was negative. CT scan of the abdomen pelvis ordered and pending. Care of patient turned over to morning physician awaiting CT results and final disposition. Lab Data Attestation: I reviewed the patient's lab results. Labs: Laboratory Results - last 24 hr 01/22/25 06:00 WBC 4.6 RBC 4.62 Hgb 13.9 Hct 39.7 MCV 85.9 MCH 30.1 MCHC 35.0 RDW Std Deviation 40.2 RDW Coeff of Cyrus 13.0 Plt Count 274 MPV 10.7 Immature Gran % (Auto) 0.200 Neut % (Auto) 52.9 Lymph % (Auto) 36.4 Crockett % (Auto) 9.2 Eos % (Auto) 0.9 Baso % (Auto) 0.4 Absolute Neuts (auto) 2.4 Absolute Lymphs (auto) 1.67 Nucleated RBC % 0 Atypical Lymphocytes 1+ Sodium 135 Potassium 3.2 L Chloride 104 Carbon Dioxide 17.3 L Anion Gap 13 BUN 5 Creatinine 0.48 L Est GFR (MDRD) Non-Af 125 BUN/Creatinine Ratio 11.4 Glucose 97 Calcium 8.5 Total Bilirubin 0.41 AST 24 ALT 14 Alkaline Phosphatase 140 H Total Protein 7.6 Albumin 4.1 Globulin 3.5 Albumin/Globulin Ratio 1.2 Lipase 152 H Serum , Qual NEGATIVE Radiography Diagnostic Testing: Clinical Impression(s) from Imaging Studies Abdomen/Pelvis CT 01/22/25 05:57 IMPRESSION: Scattered nondilated fluid-filled small and large bowel segments, which can be seen with viral gastroenteritis. No evidence of bowel obstruction or free intraperitoneal air. No obstructive uropathy or acute appendicitis. Reading Location: [facility] <Dr. Jose Gregg, DO - Last Filed: 01/22/25 08:14> [facility] MDM Narrative Medical decision making narrative: Patient presents with vomiting diarrhea and abdominal pain x 5 days. Sick contact of her daughter who had similar illness. Clinically looks well. Diffuse abdominal tenderness. Patient was medicated morphine and Zofran. She was given a liter Mustain fluid bolus. CBC with differential showed white count 4.6 with hemoglobin 13.9 and platelet count of 274. Chemistries unremarkable other than a slightly depressed potassium at 3.2. AST was 24 and ALT was 14. Alk phos was 140. Lipase elevated 152. Serum hCG was negative. CT scan of the abdomen pelvis ordered and pending. Care of patient turned over to morning physician awaiting CT results and final disposition. Patient was turned over to wv by Dr. [email or web address]@ [id number] Brief history: History as above Physical exam: Benign. Hemodynamically stable, afebrile. Nonperitoneal abdomen Labs and images reviewed (if obtained): CBC without leukocytosis, severe anemia, no thrombocytopenia. BMP without significant electrolyte disturbance, noted mild hypokalemia and a mild metabolic acidosis otherwise no sign of endorgan hypoperfusion or acute kidney injury LFTs show no evidence of hepatobiliary pathology. Serum is negative Lipase slightly elevated CT scan abdomen pelvis no evidence of acute surgical pathology of the abdomen Patient passed p.o. challenge MDM/plan: No acute life-limiting etiology. Likely viral gastroenteritis per CT scan. Patient appropriate for discharge home with Raquelan. Impression: 1. Hypokalemia 2. Acute viral gastroenteritis Disposition: Discharge home Lab Data Labs: Laboratory Results - last 24 hr 01/22/25 06:00 WBC 4.6 RBC 4.62 Hgb 13.9 Hct 39.7 MCV 85.9 MCH 30.1 MCHC 35.0 RDW Std Deviation 40.2 RDW Coeff of Cyrus 13.0 Plt Count 274 MPV 10.7 Immature Gran % (Auto) 0.200 Neut % (Auto) 52.9 Lymph % (Auto) 36.4 Crockett % (Auto) 9.2 Eos % (Auto) 0.9 Baso % (Auto) 0.4 Absolute Neuts (auto) 2.4 Absolute Lymphs (auto) 1.67 Nucleated RBC % 0 Atypical Lymphocytes 1+ Sodium 135 Potassium 3.2 L Chloride 104 Carbon Dioxide 17.3 L Anion Gap 13 BUN 5 Creatinine 0.48 L Est GFR (MDRD) Non-Af 125 BUN/Creatinine Ratio 11.4 Glucose 97 Calcium 8.5 Total Bilirubin 0.41 AST 24 ALT 14 Alkaline Phosphatase 140 H Total Protein 7.6 Albumin 4.1 Globulin 3.5 Albumin/Globulin Ratio 1.2 Lipase 152 H Serum , Qual NEGATIVE Radiography Diagnostic Testing: Clinical Impression(s) from Imaging Studies Abdomen/Pelvis CT 01/22/25 05:57 IMPRESSION: Scattered nondilated fluid-filled small and large bowel segments, which can be seen with viral gastroenteritis. No evidence of bowel obstruction or free intraperitoneal air. No obstructive uropathy or acute appendicitis. Reading Location: [facility] Discharge Plan Triage Chief Complaint: Abd Pain ED Provider: Jose Gregg Dx/Rx/DC Orders Clinical Impression: Abdominal pain, Vomiting, Diarrhea Prescriptions: New ondansetron 4 mg tablet,disintegrating 4 mg PO Q8H PRN PRN (Reason: Nausea) Qty: 10 0RF Stand Alone Forms: ED Work / School Excuse Primary Care Provider: Care Physician,No Primary Referrals: Andrew Callejas MD [Med Staff - Active Staff] - Activity Restrictions/Additional Instructions: Thank you for trusting us with your care today! Your labs images were reassuring. There is no sign of an acute surgical emergency in your abdomen. You are likely suffering from a viral gastroenteritis. Please take Tylenol (2 pills, 650 mg), ibuprofen (2 pills, 400 mg) every 6 hours as needed for pain and fever control. Please take Zofran as needed for nausea and vomiting control. This medicine has been prescribed to you. Please pick it up at the pharmacy listed in your discharge instructions. Please return to the emergency department if your symptoms change or worsen. Please follow with your primary care physician for further outpatient evaluation and management. Print Language: Syriac Disposition Disposition: Home, Self Care
[2025-01-22] MEDS: 0.9% Normal Saline (1000mL) 1,000 ML 999 ML IV (06:01)
[2025-01-22] MEDS: Morphine 4 MG/ML Syringe IV (06:05)
[2025-01-22] MEDS: Ondansetron 4 MG/2 ML Vial IV (06:05)
[2025-01-22 06:07] LABS: Absolute Lymphocyte Count 1.67 X10^3/uL (0.83-4.51); Absolute Neutrophil Count 2.4 X10^3/uL (2.0-7.7); Basophil# 0.02 X10^3/uL; Basophil% 0.4 % (0-1); Eosinophil# 0.04 X10^3/uL; Eosinophils% 0.9 % (0-5); Hematocrit 39.7 % (37-47); Hemoglobin 13.9 g/dL (12.0-15.0); Lymphocyte # 1.67 X10^3/ul (0.83-4.51); Lymphocyte % 36.4 % (19-41); Mean Corpuscular Hgb 30.1 pg (27.0-32.0); Mean Corpuscular Volume 85.9 fL (81-99); Mean Platelet Vol. 10.7 fl (6.2-12.0); Monocyte# 0.42 X10^3/uL; Monocyte% 9.2 % (0-10); NRBC Flagged by Analyzer 0 % (0-5); Neutrophil # 2.43 X10^3/uL (2.7-7.7); Neutrophil % 52.9 % (47-70); POSITIVE MORPHOLOGY YES; Platelet Count 274 K/mm3 (150-450); RBC Distribution Width SD 40.2 fl (35.1-43.9); Red Blood Count 4.62 M/mm3 (4.2-5.4); White Blood Count 4.6 K/mm3 (4.4-11.0)
[2025-01-22 06:29] LABS: Internal QC Validated? YES +Cl - CLEAR BKGD; Pregnancy, Serum, hCG Quali. NEGATIVE Negative
[2025-01-22 06:34] LABS: ALB/GLOB Ratio 1.2 RATIO (0.9-2.4); AST(SGOT) 24 U/L (<=31); Alanine Aminotransfer ALT/SGPT 14 U/L (<=34); Albumin, Serum 4.1 g/dL (3.5-5.0); Alkaline Phosphatase 140 U/L (35-104); Anion Gap 13 (5-15); BUN 5 mg/dL (4-19); BUN/Creat Ratio 11.4 RATIO (10-20); Calcium,Total 8.5 mg/dL (7.6-11.0); Carbon Dioxide 17.3 mmol/L (21.0-32.0); Chloride 104 mmol/L (98-108); Creatinine, Serum 0.48 mg/dL (0.70-1.20); Differential Indicated SCAN CRITERIA MET; EST Glomerular Filtration Rate 125 (>60); Globulin 3.5 g/dL (2.2-4.2); Glucose 97 mg/dL (70-99); Lipase 152 U/L (13-75); Potassium 3.2 mmol/L (3.3-5.1); Protein, Total 7.6 g/dL (5.9-8.4); Sodium Level 135 mmol/L (133-145); Total Bilirubin 0.41 mg/dL (0.00-1.30)
[2025-01-22 06:45] VITALS: BP 101/73; PULSE 70; RESP 18; TEMP 36.9; O2SAT 97
[2025-01-22 07:10] LABS: Atypical Lymphocyte 1+ %
[2025-01-22] MEDS: Potassium Chloride Oral Soln 20 MEQ/15 ML UDC PO (07:37)
[2025-01-22 07:38] VITALS: BP 113/89; PULSE 71; RESP 19; O2SAT 98
[2025-01-22 08:11] VITALS: BP 104/84; PULSE 72; RESP 19; TEMP 36.8; O2SAT 98
== END 2025-01-22 08:19 | disposition home or self-care (01) ==
PROVIDERS: Emergency Medicine; Emergency Provider Emergency Medicine; Visit Provider Emergency Medicine
DX: R10.9 Unspecified abdominal pain (principal); E87.6 Hypokalemia; A08.4 Viral intestinal infection, unspecified; R11.10 Vomiting, unspecified; R19.7 Diarrhea, unspecified
CPT/HCPCS: 74177; 80053; 83690; 84703; 85025; 96361; 96374; 96375; 99284; Q9967; A4216; J2405